=== PATIENT | male | born 1990 | race Caucasian/White ===

== ENCOUNTER 2016-06-07 13:34 | Inpatient (IN) | payer OTHER ==
[2016-06-07] MEDS ORDERED: NS 1,000 ML IV ONE (16:00)
[2016-06-07] MEDS ORDERED: HEPARIN/DEXTROSE 500 ML IV ONE (16:10)
[2016-06-07] MEDS ORDERED: HEPARIN 10,000 UNIT/10 ML MDV IVP ONE (16:10)
--- NOTE | 2016-06-07 16:10 | US ---
Ultrasound and Venous Duplex Doppler Study of Left Lower Extremity Clinical History: 26-year-old male with swelling, stiffness, and pain with weightbearing since yester day afternoon. The patient is not on any anticoagulants, has never had a blood clot, and denies any t rauma. Evaluate for a DVT. Technique: A high frequency transducer was used for imaging and Doppler study of the veins of the le ft lower extremity. Pulsed Doppler and color Doppler were utilized, along with various maneuvers to assess flow in the veins. Note: The spray technician only used very light compression after noting the DV T at the level of the left common femoral vein. Cine clips were acquired in the caudal left hemipelvi s with and without color Doppler. Cursory evaluation of the contralateral common femoral vein was obt ained for comparison purposes. Comparison Study: None. Findings: The deep veins of the left lower extremity are not normally compressible, with extensive h ypoechoic clot involving much of the left lower extremity (from the level of the paired peroneal vein s into the popliteal vein, the superficial femoral vein, the common femoral vein, and then up through the left external iliac vein to the level of the external and internal iliac vein confluence. The gr eater saphenous vein is compressible, and there is also patency of the visualized posterior tibial ve ins. The popliteal fossa is unremarkable, with no Perez cyst. Impression: There is extensive deep venous thrombosis of the left lower extremity from the level of t he paired peroneal veins in the calf cephalad to the level of the caudal left hemipelvis. Consultation with interventional radiology is suggested. Results were discussed with Ang Abbasi PA-C . A Document Only message has been documented for MICHAEL Maldonado in the [employer] system on 06/07/2016 16:02, Message ID [id number].
[2016-06-07 16:12] LABS: % IMMATURE GRANULYOCYTES 0.2 % (0.0-1.1); ABSOLUTE IMMATURE GRANULOCYTES 0.02 10^3/uL (0.00-0.10); ADD DIFF? NO; ADD MORPH? NO; ADD SCAN? NO; ATYPICAL LYMPHOCYTE FLAG 20 (0-99); FRAGMENT RBC FLAG 0 (0-99); HEMATOCRIT 51.5 % (40.0-51.0); HEMOGLOBIN 18.3 g/dL (13.7-17.5); LEFT SHIFT FLG 0 (0-99); LIPEMIA HEMOLYSIS FLAG 90 (0-99); MEAN CELL HEMOGLOBIN 35.3 pg (27.9-34.1); MEAN CELL HEMOGLOBIN CONCENTR. 35.5 g/dL (32.4-36.7); MEAN CELL VOLUME 99.4 fL (81.5-99.8); MEAN PLATELET VOLUME 9.6 fL (8.7-11.7); PLATELET CLUMPS FLAG 0 (0-99); PLATELET COUNT 127 10^3/uL (150-400); RED BLOOD CELL COUNT 5.18 10^6/uL (4.40-6.38)
[2016-06-07 16:17] LABS: ANION GAP 11 mEq/L (8-16); CALCIUM 9.2 mg/dL (8.5-10.4); CARBON DIOXIDE 24 mEq/l (22-31); CHLORIDE 102 mEq/L (97-110); CREATININE 0.6 mg/dL (0.7-1.3); GLOMERULAR FILTRATION RATE > 60; GLUCOSE 148 mg/dL (70-100); POTASSIUM 4.2 mEq/L (3.5-5.2); SODIUM 137 mEq/L (134-144)
--- NOTE | 2016-06-07 16:17 | EDPHY ---
H & P Stated Complaint: l leg swelling /pain since yesterday - Personal History Current Tetanus/Diphtheria Vaccine: No - Medical/Surgical History Hx Asthma: No Hx Chronic Respiratory Disease: No Hx Diabetes: No Hx Cardiac Disease: No Hx Renal Disease: No Hx Cirrhosis: No Hx Alcoholism: No Hx HIV/AIDS: No Hx Splenectomy or Spleen Trauma: No Other PMH: denies - Social History Smoking Status: Current every day smoker Time Seen by Provider: 06/07/16 14:00 HPI/ROS: Chief complaint: Left leg pain and swelling History of present illness: This is a 26-year-old male who presents to the emergency department for evaluation treatment of left leg pain and swelling. Patient reports the onset of symptoms over the last day. They have been slowly worsening. He has noted associated discoloration of the leg. He denies any precipitating factors including no history of trauma. He denies any alleviating factors. He denies other associated signs or symptoms including no fevers, no chest pain, no shortness of breath, no cough. He has never had similar. Review of systems: A 10 point review of systems was obtained and other than described above was negative (Ang Abbasi) - Physical Exam Exam: General Appearance: Alert, nontoxic. Eyes: Pupils equal and round no pallor or injection. ENT, Mouth: Mucous membranes moist. Respiratory: There are no retractions, lungs are clear to auscultation. Cardiovascular: Tachycardic with regular rhythm. DP and PT pulses 2+ bilaterally. Gastrointestinal: Abdomen is soft and non tender, no masses, bowel sounds normal. Neurological: Alert and oriented. Strength and sensation intact and symmetrical. Skin: Left leg is erythematous. It is swollen. Musculoskeletal: Patient is able to ambulate well. Psychiatric: Patient is oriented X 3, there is no agitation. (Ang Abbasi) Constitutional: Initial Vital Signs Temperature (C) 36.8 C 06/07/16 13:36 Heart Rate 112 H 06/07/16 13:36 Respiratory Rate 20 06/07/16 13:36 Blood Pressure 132/94 H 06/07/16 13:36 O2 Sat (%) 97 06/07/16 13:36 O2 Delivery Mode Room Air Allergies/Adverse Reactions: No Known Allergies Allergy (Unverified 06/07/16 13:36) Home Medications: Medication Instructions Recorded NK [No Known Home Meds] 06/07/16 Medical Decision Making - Diagnostics Imaging: Ultrasound left leg shows extensive DVT, see report for complete details (Ang Abbasi) ED Course/Re-evaluation: Patient seen under the supervision of my primary supervising physician Dr. Jennifer Hand. Patient presents to the emergency department for left leg pain and swelling and discoloration. Ultimately patient appears to have a very extensive DVT. Baseline blood studies are obtained. A CT scan will be obtained. Dr. Morteza Olsen, interventional Radiology will also consult on patient. Plan has been discussed with the patient who voiced understanding and agreement with it. (Ang Abbasi) I discussed this patient's care with Ang Abbasi. I did not see this patient in the emergency department, as he had already gone to Interventional Radiology. ( Jennifer Hand) Differential Diagnosis: Included but not limited to DVT, superficial thrombophlebitis, arterial occlusion, cellulitis (Ang Abbasi) - Data Points Laboratory Results: Laboratory Results 06/07/16 14:05 06/07/16 14:05 06/07/16 06/07/16 16:05 14:05 WBC 9.51 H 10^3/uL (3.80-9.50) RBC 5.18 10^6/uL (4.40-6.38) Hgb 18.3 H g/dL (13.7-17.5) Hct 51.5 H % (40.0-51.0) MCV 99.4 fL (81.5-99.8) MCH 35.3 H pg (27.9-34.1) MCHC 35.5 g/dL (32.4-36.7) RDW 13.0 % (11.5-15.2) Plt Count 127 L 10^3/uL (150-400) MPV 9.6 fL (8.7-11.7) Neut % (Auto) 78.9 H % (39.3-74.2) Lymph % (Auto) 10.3 L % (15.0-45.0) [place] % (Auto) 10.0 % (4.5-13.0) Eos % (Auto) 0.3 L % (0.6-7.6) Baso % (Auto) 0.3 % (0.3-1.7) Nucleat RBC Rel Count 0.0 % (0.0-0.2) Absolute Neuts (auto) 7.50 H 10^3/uL (1.70-6.50) Absolute Lymphs (auto) 0.98 L 10^3/uL (1.00-3.00) Absolute Monos (auto) 0.95 H 10^3/uL (0.30-0.80) Absolute Eos (auto) 0.03 10^3/uL (0.03-0.40) Absolute Basos (auto) 0.03 10^3/uL (0.02-0.10) Absolute Nucleated RBC 0.00 10^3/uL (0-0.01) Immature Gran % 0.2 % (0.0-1.1) Immature Gran # 0.02 10^3/uL (0.00-0.10) PT 14.3 SEC (12.0-15.0) INR 1.12 (0.83-1.16) APTT 28.6 SEC (23.0-38.0) Fibrinogen 410 mg/dL (214-456) D-Dimer > 20.00 H ug/mLFEU (0.00-0.50) Heparin Anti-Xa, Unfract < 0.10 L IU/mL (0.32-0.67) Sodium 137 mEq/L (134-144) Potassium 4.2 mEq/L (3.5-5.2) Chloride 102 mEq/L (97-110) Carbon Dioxide 24 mEq/l (22-31) Anion Gap 11 mEq/L (8-16) BUN 5 L mg/dL (7-23) Creatinine 0.6 L mg/dL (0.7-1.3) Estimated GFR > 60 Glucose 148 H mg/dL (70-100) Calcium 9.2 mg/dL (8.5-10.4) NT-Pro-B Natriuret Pep 39 pg/mL (0-125) Medications Given: Discontinued Medications Heparin Sodium (Porcine) (Heparin Injection) 0 unit IVP EDNOW ONE PRN Reason: Protocol Stop: 06/07/16 16:11 Last Admin: 06/07/16 16:20 Dose: 4,000 units Heparin Sodium (Porcine) (Heparin 50 Units/Ml (Premix)) 500 mls @ 0 mls/hr IV EDNOW ONE; Per Protocol PRN Reason: Protocol Stop: 06/07/16 16:11 Last Admin: 06/07/16 16:15 Dose: 500 mls Sodium Chloride (Ns) 1,000 mls @ 0 mls/hr IV ONCE ONE PRN Reason: Wide Open Stop: 06/07/16 16:01 Last Admin: 06/07/16 16:20 Dose: 1,000 mls Departure - Departure Disposition: [facility] Acute Clinical Impression: DVT (deep venous thrombosis) Condition: Fair
[2016-06-07 16:18] LABS: APTT 28.6 SEC (23.0-38.0); INR 1.12 (0.83-1.16); PROTIME(PATIENT) 14.3 SEC (12.0-15.0)
[2016-06-07] MEDS ORDERED: IOPAMIDOL (ISOVUE 370) 100 ML BTL IV ONE (16:30)
[2016-06-07] MEDS ORDERED: ONDANSETRON DISINTEGRATING 4 MG TAB PO PRN (16:32)
[2016-06-07] MEDS ORDERED: TEMAZEPAM 15 MG CAP PO PRN (16:32)
[2016-06-07] MEDS ORDERED: oxyCODONE IR 5 MG TAB PO PRN (16:32)
[2016-06-07] MEDS ORDERED: ONDANSETRON 4 MG/2 ML VIAL IVP PRN (16:32)
[2016-06-07] MEDS ORDERED: HEPARIN 10,000 UNIT/10 ML MDV IVP PRN (16:40)
[2016-06-07] MEDS ORDERED: NS 1,000 ML IV SCH (16:45)
--- NOTE | 2016-06-07 16:59 | GHP ---
[f rep st] HISTORY AND PHYSICAL DATE OF ADMISSION: 06/07/2016 DATE OF EVALUATION: 06/07/2016 CHIEF COMPLAINT: Swollen leg. HISTORY OF PRESENT ILLNESS: This is a 26-year-old man, otherwise healthy, who presents with about 24 hours of a left swollen leg. It started to get swollen yesterday, became discolored and painful tod ay, thus he presented to the emergency department. He has no recent travel. He has does have a hist ory of about 2 years' worth of night sweats, which occur about every other night. He wakes up [facility] ed. Otherwise, he has had no weight loss. He reports no history of clots, no new lumps or bumps in his neck or axilla. No new testicular swelling. PAST MEDICAL/SURGICAL HISTORY: None. MEDICATIONS: None. ALLERGIES: None. FAMILY HISTORY: No clots. SOCIAL HISTORY: He drinks and smokes. 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 REVIEW OF SYSTEMS: Ten-point review of systems is conducted and is negative, except per HPI. PHYSICAL EXAM: VITAL SIGNS: Blood pressure 135/90, heart rate 128, respiration rate 16, satting at 94% on room air, temperature is 36.8. GENERAL: The patient is a very pleasant young man who appear s comfortable, in no acute distress. HEENT: Shows him to be normocephalic, atraumatic. CARDIOVASCU LAR: Shows a regular rate and rhythm. No murmurs, rubs, or gallops. PULMONARY: Shows his lungs to be clear to auscultation bilaterally. ABDOMINAL: Soft, nontender, nondistended. SKIN: Shows no r lavell. : Shows no Rodriguez. NEUROLOGIC: Shows him to be alert and oriented x3. Motor is intact in the upper and lower extremities. Sensation to light touch is intact in the upper and lower extremities. Cranial nerves 2-12 are intact. PSYCHIATRIC: Shows normal mood and affect. EXTREMITIES: Show hi s left lower extremity to be markedly edematous and mildly erythematous. It is mildly tender to palp ation. He has palpable dorsalis pedis, as well as posterior tibialis pulses. He has sensation in hi s left foot. LYMPH: Shows no cervical, supraclavicular, axillary, or inguinal adenopathy. DATA: 1. I discussed this with Ang Abbasi. Will plan to admit to med/surg. 2. Extremity ultrasound shows large left lower extremity clot. 3. Labs show a white count of 9.5, neutrophilic predominant, hemoglobin is 18.5, platelets are 127. INR is 1.12. 4. Metabolic panel shows an elevated glucose, otherwise unremarkable. IMPRESSION AND PLAN: A 26-year-old man, presents with large left lower extremity deep venous thrombo sis. 1. Large left lower extremity deep venous thrombosis: Agree with heparin as ordered by the emergenc y department. He will be evaluated by Interventional Radiology for possible catheter-directed lysis given the extent. I think this is appropriate. I do not find any contraindications. He has a marla l neurologic exam. For now we will continue heparin, but this may need to be adjusted based on his f urther course. I have run a hypercoagulable panel. I note that his cell counts are abnormal. Will check a JAK2, as well as an EPO given his erythrocythemia. He is mildly thrombocytopenic as well. C sarah consider Hematology consultation. 2. Tachycardia: Suspect he may have a PE in the setting of a large DVT. CT angiogram has been lovely rosales. /[id number]/MODL
[2016-06-07] MEDS ORDERED: HEPARIN/DEXTROSE 500 ML IV SCH ×2 (17:00→20:00)
[2016-06-07 17:10] LABS: FIBRINOGEN 410 mg/dL (214-456)
--- NOTE | 2016-06-07 17:22 | CT ---
CT Pulmonary Angiogram 1656 hours Clinical Indications: Dyspnea. Left lower extremity DVT diagnosed. Technique: Thinly collimated multidetector helical CT imaging was performed through the chest while 90 mL Isovue-370 were injected intravenously without complication. The images were reconstructed in multiple planes. Dose reduction techniques were utilized. Findings: CT Angiogram: There is moderate volume segmental pulmonary embolus to the right lower lobe as well as subsegmental pulmonary emboli to the right middle lobe, right upper lobe, left lower lobe, and lingu la as well as peripheral embolus suspected in the left upper lobe. The thoracic aorta has a normal co ntour without evidence of aneurysm or dissection. There is no pericardial effusion. The cardiac maninder bers are normal in appearance. The interventricular septum is normal in contour. CT Chest: There is some peripheral foci of consolidation involving the right and left lower lobes pos teriorly at each lung base as well as left lower lobe midportion posteriorly suggestive of pulmonary infarcts. Pulmonary masses are felt to be unlikely in this age group. Soft tissues are unremarkable. The visualized upper abdominal structures are unremarkable during arterial phase of imaging. Skeletal system: Vertebral body heights are well-maintained. There are no lytic or sclerotic osseous lesions. Impression: 1. Bilateral moderate volume pulmonary emboli as detailed above with associated focal pulmonary infar ct suspected both lower lobes. These findings were discussed by telephone with Ang Abbasi PA-C at 1720 hrs.
[2016-06-07] MEDS ORDERED: ALTEPLASE 5 MG in NS 100 ML IVP SCH (18:30)
[2016-06-07] MEDS ORDERED: MIDAZOLAM 2 MG/2 ML VIAL ONE (18:34)
[2016-06-07] MEDS ORDERED: fentaNYL 100 MCG/2 ML INJ ONE (18:34)
[2016-06-07] MEDS ORDERED: IOPAMIDOL (ISOVUE-300) 100 ML BTL IV ONE (19:40)
--- NOTE | 2016-06-07 19:40 | POSTOPPROG ---
Post Op Note Date of Operation: 06/07/16 Surgeon: Daron Olsen Anesthesia: IV Sedation Pre-op Diagnosis: Extensive DVT left leg Post-op Diagnosis: Severe iliofemoral DVT and IVC thrombosis Indication: Pain, swelling, DVT, PE Procedure: 1. IVC filter (retrievable) 2. Catheter directed thrombolysis, iliofemoral Inf/Abcess present in the surg proc area at time of surgery?: No EBL: Minimal Complications: 0
[2016-06-07] MEDS ORDERED: PROMETHAZINE HCL 25 MG/ML INJ IVP PRN (19:51)
--- NOTE | 2016-06-07 20:54 | IR ---
Left Iliofemoral Venography Inferior Vena Cavagram Inferior Vena Caval Filter Initiation of Catheter-Directed Left Iliofemoral Venous Thrombolysis History: Acute extensive left iliofemoral deep vein thrombosis. Pulmonary embolism. Consent: Risks and benefits of the procedure were discussed in detail, and informed consent was obt ained. The patient accepted risks of internal bleeding, pulmonary embolism despite filter, maldeploy ment of filter, inability to retrieve filter, filter migration, infection, and ALLERGIC reaction. Medications: Intravenous conscious sedation and analgesia were given under my supervision. Vital sig ns, pulse oximetry, and electrocardiogram were monitored. The patient received 2 milligrams of Versed and 100 micrograms of fentanyl intravenously. Start time: 1839. End time: 1924. Fluoroscopy time in minutes: 5.2. Estimated exposure in milligray: 57.2. Technique: With the patient prone, the left popliteal fossa was prepped and draped in sterile fashio n. All elements of maximal sterile barrier technique were used, including cap, mask, sterile gown, s terile gloves, large sterile sheath, hand hygiene, and 2% chlorhexidine for cutaneous antisepsis. For ultrasound imaging guidance, the transducer and cable were placed in a sterile cover, and sterile co upling gel was used. Ultrasound evaluation of potential access sites was performed. Ultrasound guid ance was used to enter the thrombosed left popliteal vein with a 5-Togolese Microintroducer. Left femo ral venography was performed using two different stations. 0.035 TSF wire and 5-Togolese Jony cathete r were slowly and carefully advanced cephalad. A straight exchange wire was used to place a 7-Togolese sidearm sheath and a 5-Togolese multisidehole straight diagnostic catheter, coaxially, with the tip i n the left common iliac vein. Inferior vena cavography was performed. The patient was then consente d urgently for deployment of inferior vena caval filter, witnessed by three nurses and two angiograph y technologists. Argon Option filter was deployed, and frontal spot image was taken. Exchange wire allowed placement of a 40-cm long 6-Togolese EKOS infusion catheter with central ultrasonic wire. Spot images were obtained. Catheter was secured to the skin with sterile adhesive dressing. The patient tolerated the procedure well and was taken to the Intensive Care Unit in stable condition. Findings: Extensive acute thrombosis is found throughout the deep veins of left popliteal, left femo ral, left iliac, and right common iliac veins. Thrombus extends from the confluence of iliac veins c ephalad into the inferior vena cava. (This large volume of clot prompted emergent caval filtration t onight.) Caval filter is in good position, with apex of the filter at the level of L2 and the filter legs at the level of the upper cortical margin of L4. The infusion sideports extend from left femor al vein up through left common iliac vein. Impressions 1. Extensive left iliofemoral deep venous thrombosis. 2. Thrombosis of low inferior vena cava and both common iliac veins. 3. Initiation of catheter-directed left iliofemoral thrombolysis. 4. Retrievable inferior vena caval filter. I discussed results with Dr. John Watson at 1940 hours. IR call - - - - - - - - - - - - - - - - - - - - - - - - - - - - - (PQRS measures: Current medications were listed in the medical record, including all known prescript ions, [id number] medications, herbal medications, and nutritional supplements. Tobacco use: N one. Prophylactic antibiotic: Unnecessary. VTE prophylaxis: Intravenous heparin is now ordered.)
--- NOTE | 2016-06-07 20:54 | IR ---
Left Iliofemoral Venography Inferior Vena Cavagram Inferior Vena Caval Filter Initiation of Catheter-Directed Left Iliofemoral Venous Thrombolysis History: Acute extensive left iliofemoral deep vein thrombosis. Pulmonary embolism. Consent: Risks and benefits of the procedure were discussed in detail, and informed consent was obt ained. The patient accepted risks of internal bleeding, pulmonary embolism despite filter, maldeploy ment of filter, inability to retrieve filter, filter migration, infection, and ALLERGIC reaction. Medications: Intravenous conscious sedation and analgesia were given under my supervision. Vital sig ns, pulse oximetry, and electrocardiogram were monitored. The patient received 2 milligrams of Versed and 100 micrograms of fentanyl intravenously. Start time: 1839. End time: 1924. Fluoroscopy time in minutes: 5.2. Estimated exposure in milligray: 57.2. Technique: With the patient prone, the left popliteal fossa was prepped and draped in sterile fashio n. All elements of maximal sterile barrier technique were used, including cap, mask, sterile gown, s terile gloves, large sterile sheath, hand hygiene, and 2% chlorhexidine for cutaneous antisepsis. For ultrasound imaging guidance, the transducer and cable were placed in a sterile cover, and sterile co upling gel was used. Ultrasound evaluation of potential access sites was performed. Ultrasound guid ance was used to enter the thrombosed left popliteal vein with a 5-Georgian Microintroducer. Left femo ral venography was performed using two different stations. 0.035 TSF wire and 5-Georgian Jony cathete r were slowly and carefully advanced cephalad. A straight exchange wire was used to place a 7-Georgian sidearm sheath and a 5-Georgian multisidehole straight diagnostic catheter, coaxially, with the tip i n the left common iliac vein. Inferior vena cavography was performed. The patient was then consente d urgently for deployment of inferior vena caval filter, witnessed by three nurses and two angiograph y technologists. Argon Option filter was deployed, and frontal spot image was taken. Exchange wire allowed placement of a 40-cm long 6-Georgian EKOS infusion catheter with central ultrasonic wire. Spot images were obtained. Catheter was secured to the skin with sterile adhesive dressing. The patient tolerated the procedure well and was taken to the Intensive Care Unit in stable condition. Findings: Extensive acute thrombosis is found throughout the deep veins of left popliteal, left femo ral, left iliac, and right common iliac veins. Thrombus extends from the confluence of iliac veins c ephalad into the inferior vena cava. (This large volume of clot prompted emergent caval filtration t onight.) Caval filter is in good position, with apex of the filter at the level of L2 and the filter legs at the level of the upper cortical margin of L4. The infusion sideports extend from left femor al vein up through left common iliac vein. Impressions 1. Extensive left iliofemoral deep venous thrombosis. 2. Thrombosis of low inferior vena cava and both common iliac veins. 3. Initiation of catheter-directed left iliofemoral thrombolysis. 4. Retrievable inferior vena caval filter. I discussed results with Dr. John Watson at 1940 hours. IR call - - - - - - - - - - - - - - - - - - - - - - - - - - - - - (PQRS measures: Current medications were listed in the medical record, including all known prescript ions, [id number] medications, herbal medications, and nutritional supplements. Tobacco use: N one. Prophylactic antibiotic: Unnecessary. VTE prophylaxis: Intravenous heparin is now ordered.)
--- NOTE | 2016-06-07 20:54 | IR ---
Left Iliofemoral Venography Inferior Vena Cavagram Inferior Vena Caval Filter Initiation of Catheter-Directed Left Iliofemoral Venous Thrombolysis History: Acute extensive left iliofemoral deep vein thrombosis. Pulmonary embolism. Consent: Risks and benefits of the procedure were discussed in detail, and informed consent was obt ained. The patient accepted risks of internal bleeding, pulmonary embolism despite filter, maldeploy ment of filter, inability to retrieve filter, filter migration, infection, and ALLERGIC reaction. Medications: Intravenous conscious sedation and analgesia were given under my supervision. Vital sig ns, pulse oximetry, and electrocardiogram were monitored. The patient received 2 milligrams of Versed and 100 micrograms of fentanyl intravenously. Start time: 1839. End time: 1924. Fluoroscopy time in minutes: 5.2. Estimated exposure in milligray: 57.2. Technique: With the patient prone, the left popliteal fossa was prepped and draped in sterile fashio n. All elements of maximal sterile barrier technique were used, including cap, mask, sterile gown, s terile gloves, large sterile sheath, hand hygiene, and 2% chlorhexidine for cutaneous antisepsis. For ultrasound imaging guidance, the transducer and cable were placed in a sterile cover, and sterile co upling gel was used. Ultrasound evaluation of potential access sites was performed. Ultrasound guid ance was used to enter the thrombosed left popliteal vein with a 5-Bahamian Microintroducer. Left femo ral venography was performed using two different stations. 0.035 TSF wire and 5-Bahamian Jony cathete r were slowly and carefully advanced cephalad. A straight exchange wire was used to place a 7-Bahamian sidearm sheath and a 5-Bahamian multisidehole straight diagnostic catheter, coaxially, with the tip i n the left common iliac vein. Inferior vena cavography was performed. The patient was then consente d urgently for deployment of inferior vena caval filter, witnessed by three nurses and two angiograph y technologists. Argon Option filter was deployed, and frontal spot image was taken. Exchange wire allowed placement of a 40-cm long 6-Bahamian EKOS infusion catheter with central ultrasonic wire. Spot images were obtained. Catheter was secured to the skin with sterile adhesive dressing. The patient tolerated the procedure well and was taken to the Intensive Care Unit in stable condition. Findings: Extensive acute thrombosis is found throughout the deep veins of left popliteal, left femo ral, left iliac, and right common iliac veins. Thrombus extends from the confluence of iliac veins c ephalad into the inferior vena cava. (This large volume of clot prompted emergent caval filtration t onight.) Caval filter is in good position, with apex of the filter at the level of L2 and the filter legs at the level of the upper cortical margin of L4. The infusion sideports extend from left femor al vein up through left common iliac vein. Impressions 1. Extensive left iliofemoral deep venous thrombosis. 2. Thrombosis of low inferior vena cava and both common iliac veins. 3. Initiation of catheter-directed left iliofemoral thrombolysis. 4. Retrievable inferior vena caval filter. I discussed results with Dr. John Watson at 1940 hours. IR call - - - - - - - - - - - - - - - - - - - - - - - - - - - - - (PQRS measures: Current medications were listed in the medical record, including all known prescript ions, [id number] medications, herbal medications, and nutritional supplements. Tobacco use: N one. Prophylactic antibiotic: Unnecessary. VTE prophylaxis: Intravenous heparin is now ordered.)
[2016-06-07] MEDS: ACETAMINOPHEN 325 MG TAB PO PRN (22:33)
[2016-06-07] MEDS: LORazepam 1 MG TAB PO PRN (22:33)
[2016-06-07] MEDS: ALTEPLASE 5 MG in NS 100 ML IV SCH (23:33)
[2016-06-08] MEDS: ALTEPLASE 5 MG in NS 100 ML IV SCH ×3 (04:58→14:10)
[2016-06-08] MEDS: ACETAMINOPHEN 325 MG TAB PO PRN (06:06)
[2016-06-08] MEDS: LORazepam 1 MG TAB PO PRN ×2 (06:06→19:06)
[2016-06-08 06:13] LABS: % IMMATURE GRANULYOCYTES 0.3 % (0.0-1.1); ABSOLUTE IMMATURE GRANULOCYTES 0.02 10^3/uL (0.00-0.10); ADD DIFF? NO; ADD MORPH? NO; ADD SCAN? NO; ATYPICAL LYMPHOCYTE FLAG 20 (0-99); FRAGMENT RBC FLAG 0 (0-99); HEMATOCRIT 42.2 % (40.0-51.0); LEFT SHIFT FLG 0 (0-99); LIPEMIA HEMOLYSIS FLAG 90 (0-99); MEAN CELL HEMOGLOBIN 36.5 pg (27.9-34.1); MEAN CELL HEMOGLOBIN CONCENTR. 35.5 g/dL (32.4-36.7); MEAN CELL VOLUME 102.7 fL (81.5-99.8); MEAN PLATELET VOLUME 9.4 fL (8.7-11.7); PLATELET CLUMPS FLAG 0 (0-99); PLATELET COUNT 90 10^3/uL (150-400); RED BLOOD CELL COUNT 4.11 10^6/uL (4.40-6.38); RED CELL DISTRIBUTION WIDTH 13.2 % (11.5-15.2)
[2016-06-08 06:53] LABS: ALANINE AMINOTRANSFERASE 24 IU/L (21-72); ALKALINE PHOSPHATASE 84 IU/L (38-126); ANION GAP 3 mEq/L (8-16); ASPARTATE AMINOTRANSFERASE 16 IU/L (17-59); BILIRUBIN,TOTAL 2.4 mg/dL (0.1-1.4); CALCIUM 8.3 mg/dL (8.5-10.4); CARBON DIOXIDE 23 mEq/l (22-31); CHLORIDE 109 mEq/L (97-110); CREATININE 0.5 mg/dL (0.7-1.3); GLOMERULAR FILTRATION RATE > 60; GLUCOSE 100 mg/dL (70-100); SODIUM 135 mEq/L (134-144); TOTAL PROTEIN 5.8 g/dL (6.3-8.2)
[2016-06-08 07:18] LABS: BILIRUBIN-CONJUGATED 0.4 mg/dL (0.0-0.5)
--- NOTE | 2016-06-08 14:41 | HOSPPROG ---
Hospitalist Progress Note Assessment/Plan: Assessment: 26-year-old male presents with acute pulmonary embolism and pulmonary infarction in the setting of large left lower extremity deep venous thrombosis Plan: 1. Pulmonary embolism and pulmonary infarction. Acute, evidenced by CT angiograms demonstrating bilateral areas of occlusion with subsequent infarction , secondary to embolization from his deep venous thrombosis. -no evidence of hemodynamic instability, no indication for lysis of PEs -IVC filter placed given his ongoing lysis of deep venous thrombosis -if patient develops any chest pain, provide symptomatic supportive care -currently saturating well on room air at rest, will require ambulatory oxygen challenge once he is off of bed rest 2. Left lower extremity deep venous thrombosis. Extensive, acute, new problem this provider, further workup is indicated. Given the extent of his clot, tPA lysis was pursued by Interventional Radiology -this afternoon Dr. Olsen will reimage the vasculature and ascertain whether clot has resolved with catheter directed tPA -a catheter currently remains in place, on bed rest -currently requiring ICU level monitoring -will plan on transitioning over to Lovenox therapy once lysis has been completed -patient may elect for oral DOAC therapy, initiated the discussion regarding the nuances of the various oral agents as well as Coumadin/Lovenox, continue once the patient's tPA and lysis has been considered successful and we are making the transition from heparin/Lovenox tomorrow -the patient will require establishment with either a local primary care provider or [facility] -hypercoagulable workup has been sent and should be followed up in the outpatient setting 3. Erythrocytosis. Potentially hemoconcentrated, has reduced with IV fluids -Waqas 2 mutation sent -continue to monitor CBC 4. Suspected acute alcohol withdrawal. Evidence by sweatiness, mild tremulousness, consumes 6-10 alcoholic beverages daily -placed on CIWA score -continue to monitor Diet. Regular Prophylaxis. High risk patient, currently on lytic therapy Code. Full Disposition. Anticipated discharge is uncertain this time, either 06/09 versus 2/ pending duration of a catheter directed lysis. Subjective: Patient is not moved his bowels, reports left lower extremity less edematous Objective: Vital Signs Temp Pulse Resp BP Pulse Ox 36.8 C 60 22 H 118/83 H 96 06/08/16 12:00 06/08/16 14:00 06/08/16 14:00 06/08/16 14:00 06/08/16 14:00 Laboratory Results 06/08/16 05:57 06/08/16 05:57 06/07/16 06/08/16 06/09/16 05:59 05:59 05:59 Intake Total 2328.7 Output Total 720 Balance 1608.7 PT 14.3 SEC (12.0-15.0) 06/07/16 14:05 INR 1.12 (0.83-1.16) 06/07/16 14:05 - Physical Exam Constitutional: no apparent distress, appears nourished, not in pain, other ( Swelling) Cardiovascular: regular rate and rhythym, no murmur, rub, or gallop, edema (1+ left lower extremity edema), No irregularly irregular Respiratory: no respiratory distress, no rales or rhonchi, clear to auscultation Gastrointestinal: normoactive bowel sounds, soft, non-tender abdomen, no palpable masses Neurologic: AAOx3, sensation intact bilaterally Psychiatric: interacting appropriately, not anxious, not encephalopathic, thought process linear ICD10 Worksheet Patient Problems: Problems Problem Status Diagnosed DVT (deep venous thrombosis) Acute
[2016-06-08] MEDS ORDERED: BISACODYL 10 MG SUPP PR PRN (14:47)
[2016-06-08] MEDS ORDERED: POLYETHYLENE GLYCOL 3350 17 GM PKT PO PRN (14:47)
[2016-06-08] MEDS ORDERED: LACTULOSE 20 GM/30 ML UDCUP PO PRN (14:47)
[2016-06-08] MEDS ORDERED: MAGNESIUM HYDROXIDE 30 ML UDCUP PO PRN (14:47)
--- NOTE | 2016-06-08 15:58 | GCON ---
[f rep st] CONSULTATION PULMONARY/CRITICAL CARE CONSULTATION DATE OF CONSULTATION: 06/08/2016 REFERRING PHYSICIAN: John Cornell MD REASON FOR REFERRAL: Evaluation and management of PE and alcohol withdrawal. HISTORY OF PRESENT ILLNESS: Patient is a 26-year-old gentleman admitted to the hospital yesterday with a 1-day history of a leg that was swollen, painful, and discolored. He presented to the emergency department. He also had some night sweats for several years. He denied any chest pain or shortness of breath. He was admitted to the hospital after being diagnosed with a DVT and pulmonary embolism. He was seen by interventional radiology, who placed a catheter to perform lysis with tPA. Patient reports improvement in his symptoms, with some residual pain around the knee and popliteal fossa. Patient currently reports just a bit of mild nervousness/tremulousness. He has not had an alcoholic beverage since yesterday. PAST MEDICAL HISTORY: None. MEDS: None prior to admission. ALLERGIES: None. SOCIAL HISTORY: Patient drinks about 6-10 beers a day. He smokes. 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 FAMILY HISTORY: Unremarkable. REVIEW OF SYSTEMS: A 10-point review of systems was conducted and adds nothing to the history of present illness. PHYSICAL EXAMINATION: GENERAL: Patient is awake, alert, and in no acute distress. VITAL SIGNS: His blood pressure is 118/83 with a pulse of 60. He is afebrile. Oxygen saturations are 93% on room air. HEENT: Normocephalic and atraumatic. No icterus. NECK: No JVD. Trachea is midline. CHEST: Clear to auscultation. CARDIAC: Regular rate and rhythm without murmur. ABDOMEN: Soft, nontender. Bowel sounds are present. EXTREMITIES: No clubbing or cyanosis. There is no discoloration or tenderness or edema of the left lower extremity, with the exception of some mild tenderness around the IV catheter site in the popliteal fossa. NEUROLOGICAL: Patient is alert and oriented. He has some mild tremulousness. LABORATORY: A white blood count of 7.0 with a hemoglobin of 15.0 and a platelet count of 90. A chemistry group is normal. An AST is 16. A bilirubin is 2.4. A fibrinogen level is 109 this morning. An APTT is 41. A hypercoagulability panel is pending. IMAGING: An ultrasound of the left lower extremity demonstrates extensive DVT from the level of the peroneal veins to the common iliac vein. A CT scan of the chest shows a moderate volume of right and small volume of left pulmonary emboli, with some peripheral lower lobe opacities suggesting infarct. ASSESSMENT: 1. Extensive deep vein thrombosis. Patient has had a catheter placed by interventional radiology and tPA is being given. Patient reports improved symptoms to his pulmonary embolism. These are small-moderate and asymptomatic. There are however some small infarcts. 2. History of alcohol abuse. Patient drinks 6-10 alcoholic beverages daily. He is currently having some mild signs of withdrawal with tremulousness. RECOMMENDATIONS: 1. Patient will return to the interventional suite today to evaluate progress and consider further therapy. 2. Change to standard anticoagulation once the tPA is completed. 3. [facility] protocol. I had a discussion regarding the patient's alcohol use, which I told him was excessive and likely to lead to long-term health complications. /[id number]/MODL MTDD
[2016-06-08] MEDS ORDERED: fentaNYL 100 MCG/2 ML INJ ONE (16:27)
[2016-06-08] MEDS ORDERED: MIDAZOLAM 2 MG/2 ML VIAL ONE (16:27)
--- NOTE | 2016-06-08 17:14 | POSTOPPROG ---
Post Op Note Date of Operation: 06/08/16 Surgeon: Daron Olsen Anesthesia: IV Sedation Pre-op Diagnosis: Extensive DVT/PE Post-op Diagnosis: same Indication: Assess catheter-directed left iliofemoral venous thrombolysis Procedure: 1. Venography 2. stenting of left external and common iliac veins Findings: Iliofemoral patency. Residual clot in opposite common iliac vein and IVC. Inf/Abcess present in the surg proc area at time of surgery?: No EBL: Minimal Complications: 0
[2016-06-08] MEDS ORDERED: IOPAMIDOL (ISOVUE-300) 100 ML BTL IV ONE ×2 (17:15→17:16)
[2016-06-08] MEDS ORDERED: WARFARIN SODIUM 4 MG TAB ONE (17:41)
[2016-06-08] MEDS: WARFARIN SODIUM 5 MG TAB PO SCH (17:44)
[2016-06-08] MEDS ORDERED: DIPHENHYDRAMINE CREAM TP PRN (17:47)
--- NOTE | 2016-06-08 19:02 | IR ---
Left Iliofemoral Venography Balloon Angioplasty and Stenting of Left External Iliac Vein and Left Common Iliac Vein History: Assess 22 hours of catheter-directed thrombolysis of extensive left iliofemoral deep vein t hrombosis. Consent: Risks and benefits of the procedure were discussed in detail. Informed consent was obtaine d. Medications: Intravenous conscious sedation and analgesia were given under my supervision. Vital si gns, pulse oximetry, and electrocardiogram were monitored. The patient received 3 milligrams of Vers ed and 150 micrograms of fentanyl intravenously. Start time: 1625. End time: 1659. Fluoroscopy time in minutes: 5.5. Estimated exposure in milligray: 50. Technique: With the patient prone, the left popliteal fossa. All elements of maximal sterile barrier technique were used, including cap, mask, sterile gown, sterile gloves, large sterile sheath, hand h ygiene, and 2% chlorhexidine for cutaneous antisepsis. 1% Xylocaine was used for local anesthetic. T he indwelling 7-Moroccan sidearm sheath was injected with half strength Isovue-370 for upper left femor al venography. Then, venography of left hemipelvis and lower abdomen was performed. Infusion cathet er was removed over 0.035 straight exchange wire. The short sidearm sheath was exchanged for a new, 55-cm long 7-Moroccan sidearm sheath. This allowed coaxial deployment of a 12-mm diameter x 4-cm long angioplasty balloon, which was used to dilate the left external iliac vein and left common iliac vein . Left iliac venography was performed. Overlapping 14-mm diameter self-expanding stents were then p laced (Snaps). A 60-mm long stent was deployed inferiorly, overlapped by a 40-mm long stent sup eriorly. Maximal expansion of stents was assisted by 12-mm angioplasty balloon. Then, left iliocava l venography was performed by injecting the sidearm sheath at the left common femoral venous level. Sheath and wire were removed and hemostasis was obtained by manual compression with a Thrombix patch. Sterile dressing was applied. The patient tolerated the procedure well and was returned to the Int ensive Care Unit in stable condition. Findings: Previous extensive deep vein thrombosis has cleared from the left femoral vein, left exter nal iliac vein, and left common iliac vein. Moderately severe stenosis narrows the left external sheela ac vein, while mild to moderate stenosis narrows the left common iliac vein. There is still some cecy ling defect in the lower inferior vena cava, below the caval filter, but the defect has partially reinaldo ed and appears significantly improved from yesterday. Filling defect is still visualized in the righ t common iliac vein. After stenting and balloon angioplasty, the left external iliac vein and left common iliac vein are w idely patent, with prompt drainage of contrast into the inferior vena cava. Impressions 1. Good results of catheter-directed thrombolysis of extensive left iliofemoral deep vein thrombosis . 2. Stenotic left external iliac and left common iliac veins, responding well to placement of 14-mm d iameter stents. I communicated results with Dr. Jesus Alberto Cornell. - - - - - - - - - - - - - - - - - - - - - - - - - - - - - (PQRS measures: Current medications were listed in the medical record, including all known prescripti ons, [id number] medications, herbal medications, and nutritional supplements. Tobacco use: No ne. Prophylactic antibiotic:Unnecessary. VTE prophylaxis: Unnecessary.)
--- NOTE | 2016-06-08 19:02 | IR ---
Left Iliofemoral Venography Balloon Angioplasty and Stenting of Left External Iliac Vein and Left Common Iliac Vein History: Assess 22 hours of catheter-directed thrombolysis of extensive left iliofemoral deep vein t hrombosis. Consent: Risks and benefits of the procedure were discussed in detail. Informed consent was obtaine d. Medications: Intravenous conscious sedation and analgesia were given under my supervision. Vital si gns, pulse oximetry, and electrocardiogram were monitored. The patient received 3 milligrams of Vers ed and 150 micrograms of fentanyl intravenously. Start time: 1625. End time: 1659. Fluoroscopy time in minutes: 5.5. Estimated exposure in milligray: 50. Technique: With the patient prone, the left popliteal fossa. All elements of maximal sterile barrier technique were used, including cap, mask, sterile gown, sterile gloves, large sterile sheath, hand h ygiene, and 2% chlorhexidine for cutaneous antisepsis. 1% Xylocaine was used for local anesthetic. T he indwelling 7-Anguillan sidearm sheath was injected with half strength Isovue-370 for upper left femor al venography. Then, venography of left hemipelvis and lower abdomen was performed. Infusion cathet er was removed over 0.035 straight exchange wire. The short sidearm sheath was exchanged for a new, 55-cm long 7-Anguillan sidearm sheath. This allowed coaxial deployment of a 12-mm diameter x 4-cm long angioplasty balloon, which was used to dilate the left external iliac vein and left common iliac vein . Left iliac venography was performed. Overlapping 14-mm diameter self-expanding stents were then p laced (Alleantia). A 60-mm long stent was deployed inferiorly, overlapped by a 40-mm long stent sup eriorly. Maximal expansion of stents was assisted by 12-mm angioplasty balloon. Then, left iliocava l venography was performed by injecting the sidearm sheath at the left common femoral venous level. Sheath and wire were removed and hemostasis was obtained by manual compression with a Thrombix patch. Sterile dressing was applied. The patient tolerated the procedure well and was returned to the Int ensive Care Unit in stable condition. Findings: Previous extensive deep vein thrombosis has cleared from the left femoral vein, left exter nal iliac vein, and left common iliac vein. Moderately severe stenosis narrows the left external sheela ac vein, while mild to moderate stenosis narrows the left common iliac vein. There is still some cecy ling defect in the lower inferior vena cava, below the caval filter, but the defect has partially reinaldo ed and appears significantly improved from yesterday. Filling defect is still visualized in the righ t common iliac vein. After stenting and balloon angioplasty, the left external iliac vein and left common iliac vein are w idely patent, with prompt drainage of contrast into the inferior vena cava. Impressions 1. Good results of catheter-directed thrombolysis of extensive left iliofemoral deep vein thrombosis . 2. Stenotic left external iliac and left common iliac veins, responding well to placement of 14-mm d iameter stents. I communicated results with Dr. Jesus Alberto Cornell. - - - - - - - - - - - - - - - - - - - - - - - - - - - - - (PQRS measures: Current medications were listed in the medical record, including all known prescripti ons, [id number] medications, herbal medications, and nutritional supplements. Tobacco use: No ne. Prophylactic antibiotic:Unnecessary. VTE prophylaxis: Unnecessary.)
--- NOTE | 2016-06-08 19:02 | IR ---
Left Iliofemoral Venography Balloon Angioplasty and Stenting of Left External Iliac Vein and Left Common Iliac Vein History: Assess 22 hours of catheter-directed thrombolysis of extensive left iliofemoral deep vein t hrombosis. Consent: Risks and benefits of the procedure were discussed in detail. Informed consent was obtaine d. Medications: Intravenous conscious sedation and analgesia were given under my supervision. Vital si gns, pulse oximetry, and electrocardiogram were monitored. The patient received 3 milligrams of Vers ed and 150 micrograms of fentanyl intravenously. Start time: 1625. End time: 1659. Fluoroscopy time in minutes: 5.5. Estimated exposure in milligray: 50. Technique: With the patient prone, the left popliteal fossa. All elements of maximal sterile barrier technique were used, including cap, mask, sterile gown, sterile gloves, large sterile sheath, hand h ygiene, and 2% chlorhexidine for cutaneous antisepsis. 1% Xylocaine was used for local anesthetic. T he indwelling 7-Iranian sidearm sheath was injected with half strength Isovue-370 for upper left femor al venography. Then, venography of left hemipelvis and lower abdomen was performed. Infusion cathet er was removed over 0.035 straight exchange wire. The short sidearm sheath was exchanged for a new, 55-cm long 7-Iranian sidearm sheath. This allowed coaxial deployment of a 12-mm diameter x 4-cm long angioplasty balloon, which was used to dilate the left external iliac vein and left common iliac vein . Left iliac venography was performed. Overlapping 14-mm diameter self-expanding stents were then p laced ([employer]). A 60-mm long stent was deployed inferiorly, overlapped by a 40-mm long stent sup eriorly. Maximal expansion of stents was assisted by 12-mm angioplasty balloon. Then, left iliocava l venography was performed by injecting the sidearm sheath at the left common femoral venous level. Sheath and wire were removed and hemostasis was obtained by manual compression with a Thrombix patch. Sterile dressing was applied. The patient tolerated the procedure well and was returned to the Int ensive Care Unit in stable condition. Findings: Previous extensive deep vein thrombosis has cleared from the left femoral vein, left exter nal iliac vein, and left common iliac vein. Moderately severe stenosis narrows the left external sheela ac vein, while mild to moderate stenosis narrows the left common iliac vein. There is still some cecy ling defect in the lower inferior vena cava, below the caval filter, but the defect has partially reinaldo ed and appears significantly improved from yesterday. Filling defect is still visualized in the righ t common iliac vein. After stenting and balloon angioplasty, the left external iliac vein and left common iliac vein are w idely patent, with prompt drainage of contrast into the inferior vena cava. Impressions 1. Good results of catheter-directed thrombolysis of extensive left iliofemoral deep vein thrombosis . 2. Stenotic left external iliac and left common iliac veins, responding well to placement of 14-mm d iameter stents. I communicated results with Dr. Jesus Alberto Cornell. - - - - - - - - - - - - - - - - - - - - - - - - - - - - - (PQRS measures: Current medications were listed in the medical record, including all known prescripti ons, [id number] medications, herbal medications, and nutritional supplements. Tobacco use: No ne. Prophylactic antibiotic:Unnecessary. VTE prophylaxis: Unnecessary.)
[2016-06-08] MEDS: ENOXAPARIN 80 MG/0.8 ML SYR SC SCH (21:15)
[2016-06-08] MEDS: SENNOSIDES/DOCUSATE SODIUM TAB PO SCH (21:17)
[2016-06-09 04:53] LABS: % IMMATURE GRANULYOCYTES 0.3 % (0.0-1.1); ABSOLUTE IMMATURE GRANULOCYTES 0.03 10^3/uL (0.00-0.10); ADD DIFF? NO; ADD MORPH? NO; ADD SCAN? NO; ATYPICAL LYMPHOCYTE FLAG 10 (0-99); FRAGMENT RBC FLAG 0 (0-99); HEMATOCRIT 40.3 % (40.0-51.0); HEMOGLOBIN 14.1 g/dL (13.7-17.5); LEFT SHIFT FLG 0 (0-99); LIPEMIA HEMOLYSIS FLAG 90 (0-99); MEAN CELL HEMOGLOBIN 35.3 pg (27.9-34.1); MEAN PLATELET VOLUME 9.5 fL (8.7-11.7); PLATELET CLUMPS FLAG 0 (0-99); PLATELET COUNT 108 10^3/uL (150-400); RED BLOOD CELL COUNT 3.99 10^6/uL (4.40-6.38); RED CELL DISTRIBUTION WIDTH 12.7 % (11.5-15.2)
[2016-06-09 05:07] LABS: ANION GAP 4 mEq/L (8-16); CALCIUM 7.7 mg/dL (8.5-10.4); CARBON DIOXIDE 24 mEq/l (22-31); CHLORIDE 107 mEq/L (97-110); CREATININE 0.5 mg/dL (0.7-1.3); GLOMERULAR FILTRATION RATE > 60; GLUCOSE 83 mg/dL (70-100); POTASSIUM 4.1 mEq/L (3.5-5.2); SODIUM 135 mEq/L (134-144)
[2016-06-09 05:12] LABS: INR 1.26 (0.83-1.16); PROTIME(PATIENT) 15.8 SEC (12.0-15.0)
[2016-06-09 07:07] LABS: APTT 35.4 SEC (23.0-38.0)
[2016-06-09] MEDS: SENNOSIDES/DOCUSATE SODIUM TAB PO SCH ×2 (07:39→20:29)
[2016-06-09] MEDS: ENOXAPARIN 80 MG/0.8 ML SYR SC SCH ×2 (07:41→20:29)
[2016-06-09] MEDS: LORazepam 1 MG TAB PO PRN ×2 (08:01→15:17)
--- NOTE | 2016-06-09 08:49 | HOSPPROG ---
Hospitalist Progress Note Assessment/Plan: #Bilateral pulmonary embolism: with infarct -stable on RA #Left LE DVT: s/p iliofemoral angioplasty 06/08 -currently on Lovenox. Adding coumadin today -IVC removal in 3 months #Hypercoaguable state -panel sent, FU outpatient #Erythrocytosis -CATALINA 2 pending #Etoh w/d -Ativan this AM #Diet: regular #DVT ppx: coumadin #Disp: transfer floor. If w/d improved, likely DC in morning Subjective: no pain or SOB Objective: Vital Signs Temp Pulse Resp BP Pulse Ox 36.7 C 68 18 108/66 96 06/08/16 22:00 06/09/16 06:00 06/09/16 06:00 06/09/16 06:00 06/09/16 06:00 Laboratory Results 06/09/16 04:45 06/09/16 04:45 06/08/16 06/09/16 06/10/16 05:59 05:59 05:59 Intake Total 2328.7 1529 Output Total 720 1500 Balance 1608.7 29 PT 15.8 SEC (12.0-15.0) H 06/09/16 04:45 INR 1.26 (0.83-1.16) H 06/09/16 04:45 - Physical Exam Constitutional: no apparent distress, not in pain Eyes: PERRL Ears, Nose, Mouth, Throat: moist mucous membranes, hearing normal Cardiovascular: regular rate and rhythym, no murmur, rub, or gallop Respiratory: no respiratory distress, no rales or rhonchi Gastrointestinal: normoactive bowel sounds, soft, non-tender abdomen Genitourinary: no bladder fullness Skin: warm, normal color Musculoskeletal: full muscle strength, other (minimal LLE swelling. Mild TTP at incision site) Neurologic: AAOx3, other (mild hand tremor) Psychiatric: interacting appropriately ICD10 Worksheet Patient Problems: Problems Problem Status Diagnosed DVT (deep venous thrombosis) Acute
[2016-06-09] MEDS ORDERED: FLU VACC QS 2016-17(3-64YR)/PF 0.5 ML SYR (FLUARIX QUAD) IM ONE ×2 (09:18→15:30)
--- NOTE | 2016-06-09 12:17 | PDINTPN ---
Supervisor Order Takers Progress Note Assessment/Plan: Assessment: DVT: Extensive. S/P tPA lysis and stents, with good results, just mild residual clot. On Lovenox/warfarin PE: Small-moderate. With probable small infarcts. Asymptomatic, sats normal on RA. EtOH abuse: Mild tremulousness. Has received minimal benzos Plan: Continue anticoagulation. Should stay on indefinitely. Transfer to floor, monitor for EtOH withdrawal. If doing OK, could be discharged tomorrow with outpatient resources for EtOH treatment. 06/09/16 12:15 06/09/16 12:19 Subjective: Feels better. Still some leg swelling, but no pain. Able to walk, but leg feels a bit weak. Some tremulousness, but gait stable. Objective: Vital Signs Temp Pulse Resp BP Pulse Ox 36.7 C 102 H 22 H 119/81 H 93 06/09/16 08:00 06/09/16 08:00 06/09/16 08:00 06/09/16 08:00 06/09/16 08:00 Laboratory Results 06/09/16 04:45 06/09/16 04:45 06/08/16 06/09/16 06/10/16 05:59 05:59 05:59 Intake Total 2328.7 1529 Output Total 720 1500 Balance 1608.7 29 PT 15.8 SEC (12.0-15.0) H 06/09/16 04:45 INR 1.26 (0.83-1.16) H 06/09/16 04:45 ICD10 Worksheet Patient Problems: Problems Problem Status Diagnosed DVT (deep venous thrombosis) Acute
[2016-06-09 13:44] LABS: PROTEIN S ACTIVITY 114 % (65 - 160)
[2016-06-09 14:19] LABS: PROTEIN C ACTIVITY 36 % (70 - 150)
[2016-06-09] MEDS: WARFARIN SODIUM 5 MG TAB PO SCH (15:17)
[2016-06-10 04:54] VITALS: TEMP 97.9
[2016-06-10 05:30] LABS: % IMMATURE GRANULYOCYTES 0.4 % (0.0-1.1); ABSOLUTE IMMATURE GRANULOCYTES 0.03 10^3/uL (0.00-0.10); ADD DIFF? NO; ADD MORPH? NO; ADD SCAN? NO; ATYPICAL LYMPHOCYTE FLAG 20 (0-99); FRAGMENT RBC FLAG 0 (0-99); HEMATOCRIT 41.5 % (40.0-51.0); HEMOGLOBIN 14.3 g/dL (13.7-17.5); LEFT SHIFT FLG 0 (0-99); LIPEMIA HEMOLYSIS FLAG 90 (0-99); MEAN CELL HEMOGLOBIN 35.5 pg (27.9-34.1); MEAN CELL HEMOGLOBIN CONCENTR. 34.5 g/dL (32.4-36.7); PLATELET CLUMPS FLAG 0 (0-99); PLATELET COUNT 140 10^3/uL (150-400); RED BLOOD CELL COUNT 4.03 10^6/uL (4.40-6.38); RED CELL DISTRIBUTION WIDTH 12.8 % (11.5-15.2)
[2016-06-10 05:41] LABS: INR 1.2 (0.83-1.16); PROTIME(PATIENT) 15.2 SEC (12.0-15.0)
[2016-06-10 05:58] LABS: ANION GAP 9 mEq/L (8-16); CALCIUM 8.3 mg/dL (8.5-10.4); CARBON DIOXIDE 22 mEq/l (22-31); CHLORIDE 107 mEq/L (97-110); CREATININE 0.6 mg/dL (0.7-1.3); GLOMERULAR FILTRATION RATE > 60; GLUCOSE 85 mg/dL (70-100); POTASSIUM 4.1 mEq/L (3.5-5.2); SODIUM 138 mEq/L (134-144)
[2016-06-10 08:03] VITALS: BP 126/81; PULSE 78; RESP 18; O2SAT 94
[2016-06-10] MEDS: SENNOSIDES/DOCUSATE SODIUM TAB PO SCH (09:12)
[2016-06-10] MEDS: ENOXAPARIN 80 MG/0.8 ML SYR SC SCH (09:13)
[2016-06-10] MEDS: LORazepam 1 MG TAB PO PRN (09:17)
[2016-06-10 17:47] LABS: JAK2 RESULT see interpretation (()); JAK2 V617F MUTATION DETECTION See Comments (())
[2016-06-11 07:38] LABS: INTERPRETATION See Comments (())
--- NOTE | 2016-06-11 10:00 | GDS ---
[f rep st] DISCHARGE SUMMARY DISCHARGE DIAGNOSES: 1. Bilateral pulmonary embolism with small infarct. 2. Extensive left leg deep venous thrombosis, status post tPA lysis and stenting. 3. IVC filter placement. 4. Alcohol abuse. 5. Tobacco abuse. 6. Alcohol withdrawal. 7. Erythrocytosis. PROCEDURES: 1. IVC filter placement 06/07/2016. 2. Left lower extremity DVT tPA lysis with stent on 06/08/2016. HISTORY OF PRESENT ILLNESS: The patient is a 26-year-old male with history of alcohol abuse, tobacco abuse, presenting with a swollen left leg for 24 hours. He noted that it became discolored and painful the day of admission and came to the emergency room. Denied recent travel. He does report 2 years' worth of night sweats every other evening. No weight loss. No joint pain or lymphadenopathy. Ultrasound in the emergency room demonstrated large left lower DVT. HOSPITAL COURSE: 1. Extensive left iliofemoral DVT: underwent thrombolysis/stenting without complication. Left external iliac and common iliac veins are now wildly patent on repeat US. Transitioned to Coumadin with a Lovenox bridge. He will have repeat INR and anticoagulation clinic on Tuesday. 2. Bilateral PE with likely infarct: Anticoagulation as stated above. Hypercoagulable labs were ordered along with CATALINA-2 for erythrocytosis. Advised the patient to follow up with [facility] for further evaluation. These tests are pending at the time of discharge. 3. Alcohol abuse: The patient states he is drinking anywhere from 8-10 beers a day. He does want to quit. He was provided resources. He states he does have a social network here that could help him. He did require a small amount of Ativan during hospitalization, but is currently stable. 4. Tobacco abuse: The patient was counseled on cessation. DISPOSITION: The patient is stable for discharge. DISCHARGE MEDICATIONS: New medications: Lovenox b.i.d., Coumadin 5 mg daily. FOLLOWUP: 1. INR check on June 14. 2. PCP appointment. 3. Follow up with [facility] for hypocoagulable state evaluation. 4. Follow up with Interventional Radiology in 3 months for IVC filter removal. /[id number]/MODL MTDD
== END 2016-06-10 12:54 | disposition home or self-care (01) | DRG 167 ==
LOC: F2N 19:51 → F1N 06-09 16:50
PROVIDERS: ADMIT Student in an Organized Health Care Education/Training Program; ATTEND Student in an Organized Health Care Education/Training Program
DX: I26.99 Other pulmonary embolism without acute cor pulmonale (principal); I82.422 Acute embolism and thrombosis of left iliac vein; F10.239 Alcohol dependence with withdrawal, unspecified; Z72.0 Tobacco use; Z23 Encounter for immunization
CPT/HCPCS: 81332-90; 81439-90; 81479-90; 82668-90; 85300-90; 85303-90; 85306-90; 85520-90; 86147-90; 96374; C1725; C1757; C1769; C1876; C1894; G0008; J1644; J1650; J2250; J2405; J2997; J3010; Q9967